=== PATIENT | female | born 1975 | race Caucasian/White ===

== ENCOUNTER 2019-02-01 14:02 | Emergency (ER) | payer OTHER ==
[2019-02-01 14:08] VITALS: BP 112/83; PULSE 112; RESP 16; TEMP 97.8; O2SAT 99
== END 2019-02-01 15:01 | disposition home or self-care (01) | DRG 159 ==
LOC: ED 14:02
DX: K04.7 Periapical abscess without sinus (principal)
CPT/HCPCS: 99282